=== PATIENT | female | born 1995 | race Two or more races ===

== ENCOUNTER 2020-07-18 09:24 | Emergency (ER) | payer MEDICAID, SELFPAY ==
[2020-07-18 09:30] VITALS: BP 140/97; PULSE 82; RESP 18; TEMP 36.9; O2SAT 99; BMI 25.7
--- NOTE | 2020-07-18 09:42 | ED_ITS ---
HPI - General Adult General Chief complaint: General Medical Stated complaint: covid symptoms Time Seen by Provider: 07/18/20 09:35 Source: patient Mode of arrival: ambulatory Limitations: no limitations History of Present Illness HPI narrative: starting body aches and nausea. 2 days ago loss of taste and smell. No fevers/chills/vomiting/abdominal pain. Onset (ago): day(s) Radiation: non-radiation Severity: mild Relieving factors: none Exacerbating factors: none Associated symptoms: denies other symptoms Treatments prior to arrival: none Related Data Previous Rx's Medication Instructions Recorded ondansetron 4 mg PO Q6-8H PRN #10 tab 07/18/20 Allergies Allergy/AdvReac Type Severity Reaction Status Date / Time No Known Allergies Allergy Verified 07/18/20 09:33 Review of Systems Review of Systems: Yes all other systems are reviewed and are negative Constitutional: Constitutional: Reports no additional constitutional complaints, Reports body ache(s), Denies chills, Denies fever(s), Denies headache(s) and Denies weakness Eyes: Eyes: Reports no additional eye complaints and Denies change in vision ENT: Reports system reviewed and no additional complaints, except as documented, Denies dizziness, Denies headache(s), Denies nasal congestion, Denies nasal discharge and Denies neck pain Cardiovascular: Cardiovascular: Reports no additional cardiovascular complaints, Denies chest pain, Denies leg edema and Denies dyspnea Respiratory: Respiratory: Reports no additional respiratory complaints, Denies cough and Denies dyspnea Gastrointestinal: Gastrointestinal: Reports no additional gastrointestinal complaints, Denies abdominal pain, Denies diarrhea, Reports nausea and Denies vomiting Genitourinary: Genitourinary: Reports no additional female genitourinary complaints and Denies urinary incontinence Musculoskeletal: Musculoskeletal: Reports no additional musculoskeletal complaints, Denies back pain, Denies arthralgias, Denies joint swelling, Denies neck pain, Denies numbness and Denies tingling Integumentary/Breasts: Skin/Breast: Reports system reviewed and no additional complaints, except as docu and Denies rash Neurologic: Reports system reviewed and no additional complaints, except as documented, Denies Abnormal speech present, Denies dizziness, Denies headache(s), Denies numbness, Denies tingling and Denies weakness [facility] Past Medical History Attestation statement: The following information was validated with the patient. Source: obtained from family Medical History HTN (hypertension) Social History Social History Advance Directives: No Advance Directives Information Provided: No Physical Exam Vital Signs: Vital Signs: Last Vital Signs Temp 98.5 F 07/18/20 09:30 Pulse 82 07/18/20 09:30 Resp 18 07/18/20 09:30 BP 140/97 H 07/18/20 09:30 Pulse Ox 99 07/18/20 09:30 Body Mass Index 25.7 Const: General: cooperative, healthy appearing, comfortable and no acute distress Orientation/consciousness: patient oriented x3 Limitations: no limitations HENMT: Head: Yes normal to inspection Ears: hearing grossly normal bilaterally General nose exam: Normal external nose present Face and sinus: Yes normal facial exam Mouth: Normal oral and palatal mucosa present Throat: Yes posterior oropharynx normal Eyes: General: appearance normal, both eyes and all related structures Pupils: Equal, round and reactive pupils present Neck: Neck: Yes normal visual inspection Chest: Chest palpation & inspection: normal inspection of the chest Resp: Effort & Inspection: normal respiratory effort Auscultation: clear to auscultation bilaterally Cardio: Rate: regular rate Rhythm: regular rhythm Peripheral pulses: Peripheral pulses 2+ throughout GI: Inspection: Yes normal to inspection Palpation (GI): Soft to palpation and nontender Auscultation: normal bowel sounds Back/Spine/Pelvis: Thoracic/Lumbar Spine: thoracic and lumbar spine normal to inspection Skin: General skin exam: no rashes or lesions noted Neuro: General: patient oriented x3, no focal motor deficits and normal sensation to monofilament Cranial nerves: Yes Equal, round and reactive pupils present Cognition (Neuro): normal cognition Speech: No Abnormal speech present Gait exam (Neuro): Normal gait present Motor exam (neuro): 5/5 motor strength present throughout Extrem: General: Yes normal to inspection Course Course Course Narrative: Flu like symptoms x several days. Stable vital signs, exam benign, well appearing. COVID testing sent. Reviewed worrisome signs and symptoms and when to return to the emergency department. Comfortable discharge home. Discharge Plan Discharge Clinical Impression: Viral infection Patient Disposition: Home, Self-Care Instructions: Viral Syndrome (ED) Additional Instructions: We have tested you today for COVID 19. Test results take 1-2 days and we will call you with the results negative or positive. Take tylenol or motrin if able as needed for pain or fever. Stay well hydrated with fluids like water, gatorade and/or powerade. Wash hands at home. If living with others try to self isolate if possible. If unable wear a mask around others in your home and wash hands frequently. If COVID test is positive you will need to self isolate for a total of 14 days from when your symptoms started. You may return to work sooner if testing is negative and all symptoms resolved >72 hours. You should return to the emergency department for severe shortness of breath, chest pain or fever which does not respond to both tylenol and motrin at home. Prescriptions: New ondansetron 4 mg tablet,disintegrating 4 mg PO Q6-8H PRN (Reason: nausea and vomiting) Qty: 10 RF: 0 Referrals: Physician,Outside [Primary Care Provider] - 2 days Stand Alone Forms: Work/School Release Interventions: ED Discharge Assessment Last Done: 07/18/20 09:53 Discharge Date/Time: 07/18/20 09:54
== END 2020-07-18 09:54 | disposition home or self-care (01) ==
PROVIDERS: Nurse Practitioner Family; Emergency Provider Emergency Medicine
DX: R43.8 Other disturbances of smell and taste (principal); Z20.828 Contact with and (suspected) exposure to other viral communicable diseases
CPT/HCPCS: 99283; U0003

== ENCOUNTER 2020-07-28 08:41 | Outpatient (REF) | payer MEDICAID, SELFPAY | END 2020-07-28 08:42 | disposition home or self-care (01) | LOC: HO.LAB 08:41 | PROVIDERS: Visit Provider Internal Medicine | DX: Z20.828 Contact with and (suspected) exposure to other viral communicable diseases (principal) | CPT/HCPCS: C9803; U0003 ==

== ENCOUNTER 2023-09-12 13:41 | Outpatient (AMB) | payer OTHER, SELFPAY ==
--- NOTE | 2023-09-12 14:22 | MHC.OFFWIV ---
Intake Vital Signs 09/12/23 14:23 Height 5 ft 4 in Weight 225 lb 6 oz BMI 38.7 BP 126/80 Blood Pressure Location Lt brachial Position Sitting Pulse 78 Pulse Source Pulse Oximeter Temp 98.7 F Temp Source Temporal Artery Scan Pulse Oximetry (%) 98 Oxygen Delivery Method Room Air Intake Visit Reasons: [employer]/cough and congestion([phone]) Intake Note: Pt is here c/o cough and congestion for 3 days. Patient Tobacco Use Status: Never used Tobacco Allergies codeine Adverse Reaction (Intermediate, Verified 09/12/23 14:23) Unknown Do you need a note to return to daycare/school/sports/work: Yes HPI [employer]/cough and congestion([phone]) HPI Details This is a 28 year old female patient who presents today with a 6 days history of cough, nasal congestion, throat and ear pain. Denies fever or chills. Works at a high school with known sick students/contacts. [facility] Medical History HTN (hypertension) Social History Patient Tobacco Use Status: Never used Tobacco Review of Systems Const All systems reviewed & are unremarkable except as noted in HPI and below Physical Exam Vital Signs: Last Vital Signs Temp 98.7 F 09/12/23 14:23 Pulse 78 09/12/23 14:23 BP 126/80 09/12/23 14:23 Pulse Ox 98 09/12/23 14:23 Oxygen Delivery Method Room Air 09/12/23 14:23 BMI result Body Mass Index 38.7 Const General: cooperative and no acute distress HEENT Head: Yes normal to inspection Ears: TM abnormal (bilateral erythema, purulent effusion L>R) General nose exam: Normal external nose present and Nasal discharge present mucoid Mouth: Normal oral and palatal mucosa present Throat: Yes posterior oropharynx abnormal (mild erythema) Neck Neck: Yes no lymphadenopathy Resp Effort & Inspection: normal respiratory effort and able to speak in complete sentences Auscultation: wheezes scattered wheezes Cardio Palpation: normal PMI Rate: regular rate Rhythm: regular rhythm Skin General skin exam: no rashes or lesions noted Extrem General: Yes capillary refill normal and Yes no clubbing, cyanosis or edema Psych Appearance: grossly normal Mental Status: mental status grossly normal Speech and movement: Normal speech and movement present Assessment & Plan Assessment & Plan (1) Upper respiratory infection: Code(s): J06.9 - Acute upper respiratory infection, unspecified Qualifiers: URI type: unspecified viral URI Qualified Code(s): J06.9 - Acute upper respiratory infection, unspecified Plan: Viral upper URI symptoms. Advised conservative treatment for these. Covid/Flu/RSV swab obtained and work note provided. She can use otc cold/flu products as needed for symptomatic treatment and I will also start her on an albuterol inhaler for prn use due to wheezing. She agrees to plan. (2) Bilateral acute otitis media: Code(s): H66.93 - Otitis media, unspecified, bilateral Plan: Augmentin for b/l OM. Reviewed indications, use, possible s/e of medication. Can also use otc Tylenol/Motrin as needed for any pain. If she does not improve with treatment she can return to the clinic for further evaluation. Orders: Orders SARS-CoV2/FLU/RSV Today J06.9 - Acute upper respiratory infection, unspecified Medications: New amoxicillin-pot clavulanate 875-125 mg 1 tab PO BID 10 days 20 tabs 0RF H66.93 - Otitis media, unspecified, bilateral albuterol sulfate 90 mcg/actuation 1 inh inhalation QID PRN 6.7 grams 0RF shortness of breath or wheezing Coding Level of Care Code Est Pt Level 3 (34854) Diagnoses Viral upper respiratory tract infection J06.9 URI type: unspecified viral URI Bilateral acute otitis media H66.93
[2023-09-12 14:23] VITALS: BP 126/80; PULSE 78; TEMP 37.1; O2SAT 98; BMI 38.7
== END 2023-09-12 15:06 | disposition home or self-care (01) ==
PROVIDERS: Visit Provider Nurse Practitioner Family
DX: J06.9 Acute upper respiratory infection, unspecified (principal); H66.93 Otitis media, unspecified, bilateral
CPT/HCPCS: 99213

== ENCOUNTER 2023-09-12 14:54 | Outpatient (REF) | payer OTHER, SELFPAY | END 2023-09-12 14:55 | disposition home or self-care (01) | LOC: HO.LAB 14:54 | PROVIDERS: Visit Provider Nurse Practitioner Family | DX: J06.9 Acute upper respiratory infection, unspecified (principal); Z11.52 Encounter for screening for COVID-19; Z20.828 Contact with and (suspected) exposure to other viral communicable diseases | CPT/HCPCS: 0241U ==

== ENCOUNTER 2023-11-19 13:43 | Outpatient (AMB) | payer OTHER, SELFPAY ==
--- NOTE | 2023-11-19 13:51 | MHC.OFFWIV ---
Intake Vital Signs 11/19/23 13:55 Weight 225 lb BP 130/100 H Blood Pressure Location Rt brachial Position Sitting Pulse 66 Pulse Source Pulse Oximeter Pulse Oximetry (%) 98 Oxygen Delivery Method Room Air Intake Visit Reasons: EP ?LT ankle Sprain Intake Note: Patient here because she had a fall yesterday and has left foot pain and pain goes up to the hip. Patient Tobacco Use Status: Never used Tobacco Allergies codeine Adverse Reaction (Intermediate, Verified 11/19/23 13:53) Unknown Do you need a note to return to daycare/school/sports/work: No HPI HPI Comments History of Present Illness Details Patient presents to the walkin today for sick visit C/o left ankle and lower leg pain after fall yesterday went to walk and forgot there was a step so she fell to the ground onto her left lower leg has been ambulating with caution Able to bear weight PFSH Medical History HTN (hypertension) Social History Patient Tobacco Use Status: Never used Tobacco Review of Systems Const All systems reviewed & are unremarkable except as noted in HPI and below Physical Exam Vital Signs: Last Vital Signs Pulse 66 11/19/23 13:55 BP 130/100 H 11/19/23 13:55 Pulse Ox 98 11/19/23 13:55 Oxygen Delivery Method Room Air 11/19/23 13:55 General: awake, alert, oriented. Answers questions appropriately. Fully engaged in examination. Skin: warm, dry, intact HEENT: Normocephalic. Hearing intact. Cardiac: External chest normal in appearance. Respiratory: No cough, audible wheezing or stridor. Abdomen: without gross distension. MS: Full range of motion left knee. Tenderness to palpation over proximal fibula. Decreased range of motion left ankle, tenderness to palpation over lateral malleolus. Distal CMS intact. No visible bruising or swelling Neurological: Oriented to person, place, time and situation. Thought process intact. No gait abnormalities appreciated. Psychiatric: Appropriate mood and affect. Good judgment and insight. Results Reviewed Results Reviewed: XR left tib/fib: neg fracture XR left ankle: neg fracture/dislocation Assessment & Plan Assessment & Plan (1) Ankle sprain: Code(s): S93.409A - Sprain of unspecified ligament of unspecified ankle, initial encounter Plan X-ray left ankle, x-ray left tib-fib ordered and independently reviewed. Negative for fracture dislocation Aircast provided. Crutches provided. Instructions for use given to patient on discharge. Verbalized understanding with teach back Continue with rest, elevate, ice and [id number] Tylenol or Motrin as needed All questions and concerns were answered, patient agrees with plan Follow-up with PCP or return to walk-in for any new or worsening symptoms Orders: Orders XR ankle LT min 3V 11/19/23 W19.XXXA - Unspecified fall, initial encounter XR tibia fibula LT 2V 11/19/23 W19.XXXA - Unspecified fall, initial encounter Coding Level of Care Code Est Pt Level 3 (82973) Diagnoses Ankle sprain S93.409A
[2023-11-19 13:55] VITALS: BP 130/100; PULSE 66; O2SAT 98
== END 2023-11-19 15:47 | disposition home or self-care (01) ==
PROVIDERS: Visit Provider Registered Nurse Emergency
DX: S93.409A Sprain of unspecified ligament of unspecified ankle, initial encounter (principal)
CPT/HCPCS: 99213

== ENCOUNTER 2023-11-19 14:11 | Outpatient (REF) | payer OTHER, SELFPAY ==
--- NOTE | ~2023-11-19 | XR_ITS ---
EXAMINATION: XR LEFT ANKLE XR LEFT TIBIA/FIBULA CLINICAL INFORMATION: Status post fall. Left lower leg and ankle pain. COMPARISON: None. TECHNIQUE: AP, lateral, and mortise views of left ankle were obtained. AP and lateral views of the left tibia and fibula were obtained. FINDINGS: No fracture or malalignment. Ankle mortise is symmetric. Joint spaces are preserved. No evidence of talar osteochondral lesion. No significant ankle joint effusion. XR/XR tibia fibula LT 2V IMPRESSION: No acute abnormality.
--- NOTE | ~2023-11-19 | XR_ITS ---
EXAMINATION: XR LEFT ANKLE XR LEFT TIBIA/FIBULA CLINICAL INFORMATION: Status post fall. Left lower leg and ankle pain. COMPARISON: None. TECHNIQUE: AP, lateral, and mortise views of left ankle were obtained. AP and lateral views of the left tibia and fibula were obtained. FINDINGS: No fracture or malalignment. Ankle mortise is symmetric. Joint spaces are preserved. No evidence of talar osteochondral lesion. No significant ankle joint effusion. XR/XR ankle LT min 3V IMPRESSION: No acute abnormality.
== END 2023-11-19 14:12 | disposition home or self-care (01) ==
LOC: HO.HMGCX 14:11
PROVIDERS: PCP Family Medicine; Visit Provider Registered Nurse Emergency
DX: M79.662 Pain in left lower leg (principal); M25.572 Pain in left ankle and joints of left foot
CPT/HCPCS: 73590; 73610